=== PATIENT | female | born 1955 | race African-American/Black ===

== ENCOUNTER 2019-01-02 21:40 | Emergency (ER) | payer BC ==
--- NOTE | 2019-01-02 21:50 | PDOC ---
History of Present Illness - General Chief Complaint: Pain, Acute Stated Complaint: PAIN LEFT BUTTOCKS RADIATING DOWN LEG Time Seen by Provider: 01/02/19 21:41 - History of Present Illness Initial Comments: This 63 y.o. woman who works for the [employer])in a non-physical job, presents with 2 day history of lower back radiating to left buttock, left posterior thigh and left knee. The patient recalls no trauma or overuse. Over the last week, the pt was home from work and spent a lot a time sitting in her study using her typewriter. She thinks the posture she had in the particular chair she was using contributed to her pain. No prior history of lower back pain or sciatica. she had very brief numbness in left knee yesterday, cleared after warm shower . No weakness or pain below knee. The patient has been taking OTC ibuprofen for her pain with variable relief. Past History - Past Medical History Allergies/Adverse Reactions: Allergies Allergy/AdvReac Type Severity Reaction Status Date / Time No Known Allergies Allergy Verified 01/02/19 21:41 Home Medications: Ambulatory Orders Amlodipine Besylate 5 mg PO DAILY 01/02/19 Diclofenac Sodium [Voltaren -] 75 mg PO BID PRN #14 tablet. 01/02/19 Review of Systems - Review of Systems Comments:: GENERAL/CONSTITUTIONAL: No fever or chills. No weakness. HEAD, EYES, EARS, NOSE AND THROAT: No change in vision. No ear pain or discharge. No sore throat. CARDIOVASCULAR: No chest pain or shortness of breath. RESPIRATORY: No cough, wheezing, or hemoptysis. GASTROINTESTINAL: No nausea, vomiting, diarrhea or constipation. GENITOURINARY: No dysuria, frequency, or change in urination. MUSCULOSKELETAL: No joint or muscle swelling or pain. No neck or back pain. SKIN: No rash NEUROLOGIC: No headache, vertigo, loss of consciousness, or change in strength/ sensation. ENDOCRINE: No increased thirst. No abnormal weight change. HEMATOLOGIC/LYMPHATIC: No anemia, easy bleeding, or history of blood clots. ALLERGIC/IMMUNOLOGIC: No hives or skin allergy. *Physical Exam - Physical Exam Comments: GENERAL: Awake, alert, and fully oriented, in mild distress,especially with movement HEAD: No signs of trauma EYES: PERRLA, EOMI, sclera anicteric, conjunctiva clear ENT: Auricles normal inspection, hearing grossly normal, nares patent, oropharynx clear without exudates. Moist mucosa NECK: Normal ROM, supple, no lymphadenopathy, JVD, or masses LUNGS: Breath sounds equal, clear to auscultation bilaterally. No wheezes, and no crackles HEART: Regular rate and rhythm, normal S1 and S2, no murmurs, rubs or gallops ABDOMEN: Soft, nontender, normoactive bowel sounds. No guarding, no rebound. No masses EXTREMITIES: Normal range of motion, no edema. No clubbing or cyanosis. No cords, erythema, Mild tenderness to direct palpation left paraspinal area, lower lumbar region Mild tenderness to direct palpation left buttock NEUROLOGICAL: Cranial nerves II through XII grossly intact. Normal speech, normal gait SKIN: Warm, Dry, normal turgor, no rashes or lesions noted. Medical Decision Making - Medical Decision Making Clinical presentation most consistent with lumbosacral strain left side, with left sided sciatica The patient received Toradol 30 mg IM with good relief of her pain Diclofenac 75mg twice a day as needed for pain. She has no orthopedist: referral information for Dr Downs provided. She should call office tomorrow to arrange appointment within 1-2 days *DC/Admit/Observation/Transfer Diagnosis at time of Disposition: Sciatica of left side - Discharge Dispostion Disposition: HOME Condition at time of disposition: Stable - Prescriptions Prescriptions: Diclofenac Sodium [Voltaren -] 75 mg PO BID PRN #14 tablet.dr LIU Reason: Back Pain - Referrals Referrals: Jayesh Downs MD [Staff Physician] - Call tomorrow - Patient Instructions Printed Discharge Instructions: Sciatica Additional Instructions: avoid strenuous activity for the next week Diclofenac 75 mg twice a day as needed for pain; take with food call orthopedics(Dr Downs) to arrange followup within 2-3 days return to ER if you have more severe pain or experience persistent weakness/ numbness in left leg - Post Discharge Activity Forms/Work/School Notes: Back to Work
[2019-01-02 21:53] VITALS: BP 155/76; PULSE 60; TEMP 97.3; BMI 24.5
[2019-01-02] MEDS ORDERED: KETOROLAC TROMETHAMINE 60 MG/2 ML VIAL IM ONE (22:06)
[2019-01-02] MEDS ORDERED: KETOROLAC TROMETHAMINE 30 MG/1 ML VIAL ONE (22:12)
== END 2019-01-02 22:48 | disposition home or self-care (01) ==
LOC: FER 21:40
PROC: 3E0233Z Introduction of Anti-inflammatory into Muscle, Percutaneous Approach (ICD-10-PCS; principal; 2019-01-02)
DX: M54.32 Sciatica, left side (principal)
CPT/HCPCS: 99281-25